=== PATIENT | male | born 1995 | race Caucasian/White ===

== ENCOUNTER 2021-07-28 19:57 | Emergency (ER) | payer MEDICAID, SELFPAY ==
[2021-07-28 20:41] VITALS: BP 152/95; PULSE 126; RESP 16; TEMP 36.6; O2SAT 98; BMI 35.2
--- NOTE | 2021-07-29 | PC.NURSE ---
ATTEMPTED TO CALL PATIENT INTO ED X 2. NO ANSWER IN WAITING ROOM
== END 2021-07-29 00:02 | disposition left against medical advice (07) ==
PROVIDERS: Emergency Provider Emergency Medicine
DX: R60.0 Localized edema (principal)
CPT/HCPCS: 99281; 99283